=== PATIENT | male | born 1950 | race African-American/Black ===

== ENCOUNTER 2016-04-17 12:06 | Inpatient (IN) | payer OTHER ==
--- NOTE | ~2016-04-17 | CN ---
Consultation Report [id number] [place]. [address] NAME: DAMI SHANNON : 54 STATUS : ADM IN [facility]#: [id number] AGE: 65 ADM/REG DATE : 04/17/16 MR#: [id number] REPORT SERV DATE: 04/18/16 DICTATED BY: RAJAN ALFARO DATE: 04/18/16 REPORT STATUS : Draft TRANSCRIBED BY: MODL DATE: 04/18/16 CONSULTATION DATE OF CONSULTATION: 04/18/2016 REASON FOR CONSULTATION: Dysphagia. HISTORY OF PRESENT ILLNESS: Mr. 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 He also around the same time did have a cardiac arrest with requiring cardiac catheterization and stent placement and he is currently on Plavix. The patient has been getting chemo or radiation therapy and has developed inability to swallow. The patient reports at this point his swallowing is severe, he cannot keep down really significantly solids or liquids and he is losing weight. These symptoms are worsening. PAST MEDICAL HISTORY: Otherwise includes coronary artery disease, hepatitis C, hypertension, squamous cell cancer of the esophagus. Past medical history also includes history of C. diff. HOME MEDICATIONS: Include amlodipine, aspirin, Lipitor, Plavix, iron, lisinopril, metoprolol, vancomycin. ALLERGIES: HE HAS NO KNOWN DRUG ALLERGIES. SOCIAL HISTORY: He is not currently smoking or drinking. FAMILY HISTORY: Noncontributory. REVIEW OF SYSTEMS: Notable for weight loss, difficulty swallowing, and weakness. REVIEW OF SYSTEMS: Otherwise, a 14-point review of system is reviewed and was negative unless mentioned in the HPI. PHYSICAL EXAMINATION: VITAL SIGNS: Revealed a temperature of 98.4, heart rate is 71, blood pressure 138/65. GENERAL: The patient is lying in bed, in no apparent distress. HEENT: His head is atraumatic and normocephalic. His sclerae are nonicteric. Conjunctivae clear. NECK: Revealed no crepitus or thyromegaly. LUNGS: Clear. CARDIOVASCULAR: Regular rate and rhythm. ABDOMEN: Soft, nontender, and nondistended. No guarding or rebound. EXTREMITIES: Revealed no clubbing, cyanosis, or edema. Consultation Report [id number] [place]. [address] NAME: DAMI SHANNON : 54 STATUS : ADM IN PAT#: [id number] AGE: 65 ADM/REG DATE : 04/17/16 MR#: [id number] REPORT SERV DATE: 04/18/16 DICTATED BY: RAJAN ALFARO DATE: 04/18/16 REPORT STATUS : Draft TRANSCRIBED BY: MODFeng DATE: 04/18/16 LABORATORY DATA: Laboratory evaluation was notable for a white blood cell count of 1.7 with an ANC of 0.95, hemoglobin of 7.6. IMPRESSION: Dysphagia. PLAN: We will tentatively plan PEG for Thursday, assuming the patient's ANC is above 1000. We will reassess Thursday morning. At that time, we will tentatively plan for Thursday, but this may need to be delayed if his ANC drops further. Thank you for allowing to evaluate the patient. Please do not hesitate to contact me should you have any further concerns or questions. GO/MODL Rajan Alfaro MD / [id number] CC: MD Chandler Marc MD
--- NOTE | ~2016-04-17 | IDS ---
Interim Discharge Summary [facility] [address] [place]. [address] NAME: DAMI RANDLE : 54 STATUS : ADM IN [facility]#: [id number] AGE: 65 ADM/REG DATE : 04/17/16 MR#: [id number] REPORT SERV DATE: 04/21/16 DICTATED BY: CHARLES BERNSTEIN DATE: 04/21/16 REPORT STATUS : Draft TRANSCRIBED BY: MODL DATE: 04/21/16 ADMISSION DATE: 04/17/2016 DISCHARGE DATE: DATE OF DISCHARGE: Unknown. DATE OF INTERIM NOTE: 04/21/2016. INTERIM DIAGNOSES: 1. Moderate malnutrition. 2. Dysphagia. 3. Malignant neoplasm of the supraglottis, undergoing chemotherapy and radiation. Followed by Dr. Medrano. 4. Coronary artery disease, status post cardiac arrest, implantation of pacemaker defibrillator in October 2015. 5. History of clostridium difficile. 6. Hypertension. 7. Pancytopenia, chemo induced. 8. Hypokalemia. 9. Hypomagnesium. CONSULTATIONS: 1. Cardiology, Dr. Schneider, 04/17/2016. 2. GI, Dr. Alfaro, 04/18/2016. LABORATORY DATA: WBCs 1.5, hemoglobin 7.8, hematocrit 24.3, and platelet count is 84. Sodium is 144, potassium is 3.7, chloride is 110, CO2 is 26, BUN is 2, creatinine 0.70, glucose is 78, calcium is 7.9, but magnesium is 1.5. HOSPITAL STAY: Please refer to history and physical dictated by Charles Bernstein, nurse- practitioner, on 04/17/2016 for complete admission details as well as consultation note by Dr. Schneider and Dr. Alfaro. This patient is a 65-year-old gentleman who presented as a direct admission due to dysphagia and malnutrition. He does present with a history of malignant neoplasm of the supraglottis, undergoing chemotherapy and radiation. He is under the care of Dr. Medrano of [facility]. He also presents with a history of coronary artery disease, status post drug- eluting stent in October 2015 in the setting of a [id number] myocardial infarct and ventricular tachycardic arrest. 1. Moderate malnutrition due to malignant neoplasm of the supraglottis. The patient has been undergoing chemotherapy and radiation. Has had decreased oral intake. Does state within the past 7 days prior to admission, he has lost approximately 10 pounds. The patient was admitted for PEG tube placement. GI was consulted to see the patient due to patient's cardiac history. A PEG tube will be placed today, 04/21/2016. 2. Dysphagia due to malignant neoplasm of the supraglottis. The patient has been unable to tolerate clear liquids at home. Since admission, he has been able to do sips of Interim Discharge Summary [address] [address] NAME: DAMI RANDLE : 54 STATUS : ADM IN [facility]#: [id number] AGE: 65 ADM/REG DATE : 04/17/16 MR#: [id number] REPORT SERV DATE: 04/21/16 DICTATED BY: CHARLES BERNSTEIN DATE: 04/21/16 REPORT STATUS : Draft TRANSCRIBED BY: ZUHAIR DATE: 04/21/16 liquids, and we have continued MD Louie and oral care. 3. Malignant neoplasm of the supraglottis. The patient is under the care of Dr. Medrano. He is currently undergoing weekly chemotherapy and radiation. 4. Oncology is following the patient during this stay. 5. Coronary artery disease, status post cardiac arrest, embolization of pacemaker and defibrillator in October 2015. The patient when admitted, had been taking his Plavix and aspirin. Paper Novelty Maker was consulted due to complicated history. Plavix and aspirin have been held. The patient has been on a heparin drip due to PEG tube placement. 6. History of C. diff. The patient has had history of C. diff, has had formed stools since admission, and we will continue vancomycin tapering dose. 7. Hypertension. The patient has remained stable. We will continue same medications. 8. Pancytopenia, chemo induced. The patient has been monitored and stable. No transfusions have been needed at this time. 9. Hypokalemia and hypomagnesium and this has been replaced per protocol. DISCHARGE PLANNING: The patient will have a PEG tube placed today, 04/21/2016. A Nutrition consult has been obtained for tube-feeding recommendations. retirement manager is involved due to discharge needs. The patient will be followed by Dr. Ronen Shabazz. [facility]/ZUHAIR Charles Bernstein NP / [id number] CC: MD Chandler Marc MD
--- NOTE | ~2016-04-17 | EGD ---
EGD REPORT [facility] [address] [place] 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 Estimated blood loss: Minimal. Procedure: Pre-Anesthesia Assessment: - ASA Grade Assessment: III - A patient with severe systemic disease. After obtaining informed consent, the endoscope was passed under direct vision. Throughout the procedure, the patient's blood pressure, pulse, and oxygen saturations were monitored continuously. The GIF [id number] was introduced through the mouth, and advanced to the second part of duodenum. The upper GI endoscopy was accomplished without difficulty. The patient tolerated the procedure well. Findings: No gross lesions were noted in the entire esophagus. No gross lesions were noted in the entire examined duodenum. No gross lesions were noted in the entire examined stomach. The patient was placed in the supine position for PEG placement. The stomach was insufflated to appose gastric and abdominal garay. A site was located in the body of the stomach with excellent transillumination and manual external pressure for placement. The abdominal wall was marked and prepped in a sterile manner. The area was anesthetized with 5 mL of 1% lidocaine. The trocar needle was introduced through the abdominal wall and into the stomach under direct endoscopic view. A snare was introduced through the endoscope and opened in the gastric lumen. The guide wire was passed through the trocar and into the open snare. The snare was closed around the guide wire. The endoscope and snare were removed, pulling the wire out through the mouth. A skin incision was made at the site of needle insertion. The externally removable 20 Fr EndoVive Safety gastrostomy tube was lubricated. The G-tube was passed over the guide wire through the mouth, and into the stomach. The trocar needle was removed, and the gastrostomy tube was pulled out from the stomach through the skin. The guide wire was removed, and the external bumper attached to the gastrostomy tube. The feeding tube was then cut EGD REPORT [place] [id number] [facility] [place]. [address] NAME: VENKATESH SHANNON : 54 STATUS : ADM IN [facility]#: [id number] AGE: 65 ADM/REG DATE : 04/17/16 MR#: [id number] REPORT SERV DATE: 04/21/16 DICTATED BY: BRANDEN PALMA DATE: 04/21/16 REPORT STATUS : Draft TRANSCRIBED BY: [employer] DATE: 04/21/16 to an appropriate length. The final position of the gastrostomy tube was confirmed by skin marking noted to be 2.5 cm at the external bumper. The final tension and compression of the abdominal wall by the PEG tube and external bumper were checked and revealed that the bumper was loose and lightly touching the skin. The feeding tube was capped, and the tube site was cleaned and dressed. Estimated blood loss was minimal. Impression: - An externally removable PEG placement was successfully completed. Recommendation: - Return patient to hospital conteh for ongoing care. - Please follow the post-PEG recommendations including: antibiotic ointment to site, change dressing once per day, clean site with soap and water daily and dry thoroughly, remove dressing after 2 weeks, NPO x4 hrs then water today, may use PEG today for meds and water and may use PEG tomorrow for feedings. 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 All rights reserved. The codes documented in this report are preliminary and upon continuous improvement intern review may be revised to meet current compliance requirements. Branden Palma MD BRANDEN PALMA MD 04/21/2016 12:11 PM This report has been signed electronically. Number of Addenda: 0 Note Initiated On: 04/21/2016 11:36 AM Scope Withdrawal Time 0 hours 0 minutes 0 seconds [address] [place] [address]
--- NOTE | ~2016-04-17 | DS ---
Discharge Summary [facility] [address] [facility] [place]. [address] NAME: DAMI RANDLE : 54 STATUS : DIS IN PAT#: [id number] AGE: 65 ADM/REG DATE : 04/17/16 MR#: [id number] REPORT SERV DATE: 04/26/16 DICTATED BY: KARAN RODRIGUES DATE: 04/25/16 REPORT STATUS : Draft TRANSCRIBED BY: MODFeng DATE: 04/25/16 ADMISSION DATE: 04/17/2016 DISCHARGE DATE: 04/25/2016 ADDENDUM: This will be an addendum to discharge summary dictated by Dr. Shabazz. HOSPITAL COURSE: This patient was supposedly to be discharged yesterday, however, he had VA benefits and it required approval of multiple things needed in the home setting, this has been done through our Case Management Department. This patient does remain on his vancomycin taper for his C. difficile colitis. His fever has abated and he is tolerating his tube feeds without difficulty. There has not been any other change in his medical care in the last 24 hours. He will follow up with his primary care physician as well as subspecialty physician in the outpatient setting. This was discussed with the patient and the nursing staff. The patient remained stable and is being discharged in stable condition. NEEL/ZUHAIR Karan Rodrigues M.D. / [id number] CC: Courtney Dalton MD
--- NOTE | ~2016-04-17 | DS ---
Discharge Summary [facility] [address] [place]. [address] NAME: DAMI RANDLE : 54 STATUS : ADM IN [facility]#: [id number] AGE: 65 ADM/REG DATE : 04/17/16 MR#: [id number] REPORT SERV DATE: 04/25/16 DICTATED BY: GABE MARRERO II DATE: 04/24/16 REPORT STATUS : Draft TRANSCRIBED BY: MODL DATE: 04/24/16 ADMISSION DATE: 04/17/2016 DISCHARGE DATE: 04/25/2016 DISCHARGE DIAGNOSES: 1. Dysphagia secondary to neoplasm and radiation. 2. Moderate malnutrition secondary to the above. 3. Squamous cell carcinoma of the supraglottis undergoing chemotherapy and radiation followed by Dr. Medrano. 4. Coronary artery disease, status post cardiac arrest. Implantation of a pacemaker defibrillator in October 2015. 5. History of Clostridium difficile, on vanc taper. 6. Hypertension. 7. Pancytopenia secondary to chemo. 8. Hypokalemia. 9. Hypomagnesemia. 10.Postop fever with negative infectious workup. CONSULTATIONS: Dr. Schneider with Cardiology, Dr. Alfaro of GI, Dr. Medrano with Oncology. PROCEDURES: EGD with PEG tube placement. BRIEF HISTORY OF PRESENT ILLNESS: The patient is a 65-year-old male with the above history who presented to [facility] due to dysphagia and weight loss. For detailed history and physical examination, please see Arabella Bernstein's note from 04/17/2016. HOSPITAL COURSE: For details of the patient's hospitalization through 04/21/2016, please see Arabella Bernstein's interim summary on that date. Regarding the patient's dysphagia and malnutrition, Dr. Alfaro placed a PEG tube on 04/21. The patient tolerated the procedure well and is now tolerating tube feeds at goal. Case management is arranging supplies through home health and the patient will be educated on his PEG tube. Postoperatively, on the and on the morning of the , the patient spiked a fever of 101. The patient again spiked a fever of 103 on the . Infectious workup including procalcitonin, chest x-ray, urine, and blood cultures have all been unremarkable, and the patient has been afebrile since. No antibiotics were started except for the patient's oral vancomycin for history of C difficile. Symptomatically, he continues to endorse thick secretions likely secondary to radiation and Mucinex will be started. Regarding the patient's head neck cancer, Dr. Medrano is planning on starting chemotherapy on Thursday. His cell counts continued to improve. His white cell count went up to 3.7, hemoglobin stable at 7.9, platelet count up to 149. He is back on aspirin and Plavix for his coronary artery disease and stent back in October. His blood pressure continues to be fairly elevated and we will increase his Norvasc as well as continue his lisinopril and metoprolol. Overall, the patient is currently stable for discharge and he will be discharged the morning of 04/25. DISCHARGE MEDICATIONS: 1. Norvasc 10 mg p.o. daily. Discharge Summary [address] [address] NAME: DAMI RANDLE : 54 STATUS : ADM IN [facility]#: [id number] AGE: 65 ADM/REG DATE : 04/17/16 MR#: [id number] REPORT SERV DATE: 04/25/16 DICTATED BY: GABE MARRERO II DATE: 04/24/16 REPORT STATUS : Draft TRANSCRIBED BY: ZUHAIR DATE: 04/24/16 2. Aspirin 81 mg p.o. daily. 3. Lipitor. 4. Atorvastatin 80 mg p.o. at bedtime. 5. Plavix 75 mg p.o. daily. 6. Ferrous sulfate 325 mg p.o. daily. 7. Proventil 40 mg p.o. daily. 8. Lopressor 25 mg p.o. b.i.d. 9. Continue vancomycin taper as previously scheduled. 10.Mucinex 600 mg per PEG b.i.d. DISCHARGE INSTRUCTIONS: The patient will follow up with Dr. Medrano this Thursday. SHILA/ZUHAIR Gabe Marrero II, MD / [id number] CC: MD Chandler Mendoza II, MD
--- NOTE | ~2016-04-17 | CN ---
Consultation Report [facility] [address] [place]. [address] NAME: DAMI RANDLE : 54 STATUS : ADM IN PAT#: [id number] AGE: 65 ADM/REG DATE : 04/17/16 MR#: [id number] REPORT SERV DATE: 04/18/16 DICTATED BY: TERESA SCHNEIDER JR. DATE: 04/18/16 REPORT STATUS : Draft TRANSCRIBED BY: MODFeng DATE: 04/18/16 DATE OF CONSULTATION: 04/18/2016 INDICATION: Preoperative evaluation prior to PEG. 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 Medrano of [facility], currently undergoing chemotherapy, who presented recently with a ten-pound weight loss, dysphagia, anorexia, and cough. He now is admitted for a PEG placement and is on IV hydration only. On October 2015, he had non-ST elevation myocardial infarction with VT arrest, for which a single drug-eluting stent was placed to the LAD. This was a PROMUS Premier. Since that time, he denies any angina. He denies any further dysrhythmia, and otherwise had been doing well from a cardiovascular standpoint. His last dose of Plavix was approximately three days ago due to his inability to swallow. REVIEW OF SYSTEMS: A ten-point review of systems, otherwise, unremarkable. ALLERGIES: NONE KNOWN. MEDICATIONS: Currently none as he is unable to take anything by mouth. PAST MEDICAL HISTORY: Notable for history of known coronary artery disease with non-ST elevation myocardial infarction and VT arrest, diverticular bleed, hepatitis C without cirrhosis, dyslipidemia, hypertension, anemia, and supraglottic squamous-cell carcinoma. PAST SURGICAL HISTORY: Notable for a left hip arthroplasty, pacer defibrillator implantation, and prior PCI. SOCIAL HISTORY: Notable for former tobacco use. No ethanol or IV drug use. FAMILY HISTORY: Notable for absence of known heart disease or hypertension. PHYSICAL EXAMINATION: VITAL SIGNS: Blood pressure last reported 157/68, pulse is 81, respirations 14. The patient is afebrile. HEENT: Unremarkable. NECK: Supple without jugular venous distention or carotid bruits. CARDIOVASCULAR SYSTEM: Regular rhythm. No S3. No S4. PMI is laterally displaced. LUNGS: Clear. Apices diminished in the bases. ABDOMEN: Benign without hepatomegaly. EXTREMITIES: 1+ with no pedal edema. NEUROLOGIC: He is grossly intact. LABORATORY DATA: EKG is not performed. Sodium 147, potassium 3.2, chloride 113, BUN 8, Consultation Report [place] [address] [place]. [address] NAME: DAMI RANDLE : 54 STATUS : ADM IN [facility]#: [id number] AGE: 65 ADM/REG DATE : 04/17/16 MR#: [id number] REPORT SERV DATE: 04/18/16 DICTATED BY: TERESA SCHNEIDER JR. DATE: 04/18/16 REPORT STATUS : Draft TRANSCRIBED BY: MODL DATE: 04/18/16 creatinine 0.6, glucose of 82, calcium 7.7. H and H of 7.8 and 24.1, and white count of 1.9. IMPRESSION: A 65-year-old male with history of ventricular tachycardia, history of coronary artery disease, status post ventricular tachycardia arrest, status post non-ST elevation myocardial infarction post Premier drug-eluting stent in October 2015 with normal left ventricular systolic function by echo, history of automatic implantable cardioverter-defibrillator implantation. PLANS AND RECOMMENDATIONS: 1. Heparin drip. 2. Beta-isaiah. 3. Proceed with PEG on Thursday as risks are outweighed by benefits of the procedure. 4. Resume Plavix postoperative day 1. We will need perioperative beta-isaiah and will need [employer] customer operations representative to temporarily turn off defibrillator function perioperatively and resume normal function postoperatively. /ZUHAIR Teresa Schneider Jr., M.D. / [id number] CC: MD Chandler Marc MD Bertrand Marquess Anz III, M.D.
--- NOTE | ~2016-04-17 | HP ---
History And Physical [id number] [place]. [address] NAME: DAMI RANDLE : 54 STATUS : ADM IN [facility]#: [id number] AGE: 65 ADM/REG DATE : 04/17/16 MR#: [id number] REPORT SERV DATE: 04/17/16 DICTATED BY: CHARLES BERNSTEIN DATE: 04/17/16 REPORT STATUS : Draft TRANSCRIBED BY: MODFeng DATE: 04/17/16 DATE OF ADMISSION: 04/17/2016 CHIEF COMPLAINT: Dysphagia and weight loss. HISTORY OF PRESENT ILLNESS: This patient is a 65-year-old gentleman who presented with a history of malignant neoplasm of supraglottis squamous-cell carcinoma. He is under the care of Dr. Medrano of [facility], currently undergoing chemotherapy. He presented in Dr. Medrano's office today with complaints of a 10-pound weight loss over seven days. He does state that he has been unable to eat or drink. Last time, the patient has not had anything to drink on April 14, 2016. He does state that he has had a productive cough. No fever or chills, but does state that he has had no appetite and occasional nausea. No vomiting. He does present with a history of coronary artery disease, status post drug-eluting stent in October 2015 in the setting of a non-ST elevation myocardial infarct, ventricular tachycardic arrest. REVIEW OF SYSTEMS: Otherwise negative review of system except what is listed above. ALLERGIES: NO KNOWN ALLERGIES. PAST MEDICAL HISTORY: 1. Coronary artery disease, status post drug-eluting stent in October 2015 in the setting of a non-ST elevation myocardial infarct, ventricular tachycardic arrest. 2. Diverticular bleed with colonic polyps. 3. Hepatitis C without cirrhosis diagnosed in 2004. 4. Dyslipidemia. 5. Hypertension. 6. Acute blood loss anemia with underlying cause unknown. 7. 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 PAST SURGICAL HISTORY: 1. Pacer defibrillator implantation secondary to prevention of sudden cardiac arrest. 2. Left hip arthroplasty in August 2015. SOCIAL HISTORY: The patient is . Has five children. He formerly smoked. Denies alcohol use since January 2016. Denies illicit drug use. FAMILY HISTORY: 1. Mother due to trauma. 2. Father , was murdered. 3. The patient has three siblings, one . CURRENT MEDICATIONS: To be obtained. HOME MEDICATIONS: History And Physical [address] [place]. [address] NAME: DAMI RANDLE : 54 STATUS : ADM IN PAT#: [id number] AGE: 65 ADM/REG DATE : 04/17/16 MR#: [id number] REPORT SERV DATE: 04/17/16 DICTATED BY: CHARLES BERNSTEIN DATE: 04/17/16 REPORT STATUS : Draft TRANSCRIBED BY: ZUHAIR DATE: 04/17/16 1. Norvasc 5 mg one p.o. daily. 2. Aspirin 325 mg one p.o. daily. 3. Lipitor 80 mg one p.o. daily. 4. Plavix 75 mg one p.o. daily. 5. Ferrous sulfate 325 mg one p.o. daily. 6. Lisinopril 40 mg one p.o. daily. 7. Lopressor 25 mg one p.o. twice daily. 8. Vancomycin 125 mg tapering dose. PHYSICAL EXAMINATION: VITAL SIGNS: O2 saturations 98% on room air. Temperature is 98.6, pulse is 82, respirations are 16, blood pressure is 141/65. NEURO: The patient is alert and oriented. GENERAL: This patient appears fatigued and frail, in no acute distress. NECK: No JVP. Mucous membranes are dry. Oropharynx without lesions. CHEST: Left-sided pacemaker defibrillator. No tenderness. LUNGS: Diminished in the bases. No wheezes, rales, or rhonchi. CARDIOVASCULAR: Regular rate and rhythm. ABDOMEN: Soft, nontender to touch. EXTREMITIES: No edema. No cyanosis. LABORATORY DATA: WBCs 3.1, hemoglobin 9.5, hematocrit 29.7, and platelet count is 136. Glucose is 76, BUN is 11, creatinine is 0.70. Sodium is 143, potassium 3.9, chloride 105, ALT is 58, AST is 77, alkaline phos is 124, albumin is 3.0, globulin is 3.3, calcium is 8.5, total bilirubin is 0.7. ASSESSMENT AND PLAN: 1. Moderate malnutrition. The patient states that he has approximately ten-pound weight loss over the past seven days. Since November of 2015, the patient has lost approximately 25 to [address] the patient on a clear liquid diet. We will obtain a Gastrointestinal consult for percutaneous endoscopic gastrostomy tube placement. We will provide IV fluids and we will provide IV fluids. 2. Dysphagia. The patient has had nothing to eat or drink since April 14, 2016 due to mild pain. We will add MD Palma with lidocaine p.r.n. for pain. We will provide clear liquids. 3. Malignant neoplasm of the supraglottis, squamous-cell carcinoma. We will consult Oncology to follow the patient during his hospital stay. Chemotherapy is on hold at this time. 4. Coronary artery disease, status post cardiac arrest, implantation of a pacemaker defibrillator in October 2015. The patient is currently on aspirin and Plavix. We will obtain a cardiac clearance for percutaneous endoscopic gastrostomy tube placement. 5. History of Clostridium diff. The patient will continue vancomycin tapering dose. At this time, the patient states that he has had formed stools. No abdominal pain. No cramping. 6. Hypertension. The patient's blood pressure at this time is 141/65, which is stable. We will continue home medications. Continue to follow. 7. Code status. The patient is a full code. History And Physical [address] [address] NAME: DAMI RANDLE : 54 STATUS : ADM IN [facility]#: [id number] AGE: 65 ADM/REG DATE : 04/17/16 MR#: [id number] REPORT SERV DATE: 04/17/16 DICTATED BY: CHARLES BERNSTEIN DATE: 04/17/16 REPORT STATUS : Draft TRANSCRIBED BY: ZUHAIR DATE: 04/17/16 8. The patient will be followed by Dr. Anival Martinez during his hospital stay. [facility]/ZUHAIR Charles Bernstein NP / [id number] CC: MD Chanlder Marc MD
[~2016-04-17 12:06] MED LIST: *UNABLE3; APRES25 PO; ASA5GR PO; ASAB PO; ASABAYER PO; C5 PO; CHEMOTHERAPY IV; CORDARONE PO; EFFIENT10 PO; FERROUS SULF325 M1 PO; FLORASTOR250 MG PO; HYDROCHLOROT12.5 MG PO; HYDROCHLOROT25 MG PO; IMOD PO; KLOR-CON M2020 MEQ PO; LIPITOR40 PO; LIPITOR80 MG PO; LISINOPRIL40 MG PO; LOP25 PO; LOTREL1 CA1 PO; MAGNEBIND PO; MAGOX4 PO; MAX25 PO; MELA3 PO; MONOPRIL40 MG PO; NAP375 PO; NORCO1 TA2; NORCO1 TA2 PO; NORV10 PO; NORV5 PO; PLAVIX PO; PRAVAC PO; PRILO PO; TOPXL25 PO; UNKNOWN INHALER INH; VANCOCIN HCL125 MG PO/LIQ; VANCOMYCIN 125MG/5ML PO; VIAGRA50 MG PO; VITAMIN D400 UNI1 PO; Z300 PO
[2016-04-18 05:34] LABS: CALCIUM, SERUM 7.7 MG/DL (8.5-10.4); CHLORIDE, SERUM 113 MMOL/L (96-112); CO2 (CARBON DIOXIDE) 25 MMOL/L (24-34); CREATININE 0.63 MG/DL (0.70-1.30); GFR AFRICAN AMERICAN 122 ML/MIN (>=60); GFR NON AFRICAN AMERICAN 105 ML/MIN (>=60); POTASSIUM, SERUM 3.2 MMOL/L (3.5-5.3); SODIUM, SERUM 147 MMOL/L (135-148)
[2016-04-18 05:37] LABS: BUN (BLOOD UREA NITROGEN) 8 MG/DL (6-23); GLUCOSE, SERUM 82 MG/DL (60-99)
[2016-04-18 05:43] LABS: MEAN CORPUS HGB CONC 32.4 g/dL (32.0-36.0); MEAN CORPUSCULAR HEMOGLOB 28.7 pg (26.0-34.0); MEAN PLATELET VOLUME 11.7 fL (9.2-13.0); PLATELET COUNT 105 10/3/uL (150-400); RBC DISTRIBUTION WIDTH 15.5 % (12.0-16.0); RED CELL COUNT 2.72 10/6/uL (4.7-6.1)
[2016-04-18 05:47] LABS: HEMATOCRIT 24.1 % (40.0-51.0); HEMOGLOBIN 7.8 g/dL (13.6-17.8); MANUAL DIFF YES %; MEAN CORPUSCULAR VOLUME 88.6 fL (80-100); WHITE BLOOD CELLS 1.9 10/3/uL (4.5-10.5)
[2016-04-18 07:27] LABS: BAND NEUTROPHILS 8 %; LYMPHOCYTES 19 %; LYMPHOCYTES ABSOLUTE (CALC) 0.36 10/3/uL (0.67-4.30); MONOCYTES 5 %; NEUTROPHILS ABSOLUTE (CALC) 1.44 10/3/uL (2.02-8.40); PLATELET ESTIMATE SLT DEC (ADEQUATE); SEGMENTED NEUTROPHIL (0) 68 %; TOTAL NUCLEATED CELLS 100
[2016-04-18 07:28] LABS: RBC MORPHOLOGY NORM (NORMAL)
[2016-04-18 10:51] LABS: HEMATOCRIT 23.1 % (40.0-51.0); HEMOGLOBIN 7.6 g/dL (13.6-17.8); MEAN CORPUS HGB CONC 32.9 g/dL (32.0-36.0); MEAN CORPUSCULAR HEMOGLOB 29.2 pg (26.0-34.0); MEAN CORPUSCULAR VOLUME 88.8 fL (80-100); MEAN PLATELET VOLUME 11.3 fL (9.2-13.0); PLATELET COUNT 98 10/3/uL (150-400); RBC DISTRIBUTION WIDTH 15.3 % (12.0-16.0)
[2016-04-18 10:53] LABS: MANUAL DIFF YES %; WHITE BLOOD CELLS 1.7 10/3/uL (4.5-10.5)
[2016-04-18 11:02] LABS: INTERNATIONAL NORMAL RATI 1.2 UNITS (-); PARTIAL THROMBO TIME 31.4 SEC (22.5-37.2); PROTIME (NOT ORD) 14.8 SEC (12.0-14.5)
[2016-04-18 11:23] LABS: BAND NEUTROPHILS 10 %; BASOPHILS 4 %; BASOPHILS ABSOLUTE (CALC) 0.07 10/3/uL (0.0-0.16); EOSINOPHILS 2 %; EOSINOPHILS ABSOLUTE (CALC) 0.03 10/3/uL (0.0-0.53); LYMPHOCYTES 26 %; LYMPHOCYTES ABSOLUTE (CALC) 0.44 10/3/uL (0.67-4.30); MONOCYTES 12 %; NEUTROPHILS ABSOLUTE (CALC) 0.95 10/3/uL (2.02-8.40); PLATELET ESTIMATE DEC (ADEQUATE); SEGMENTED NEUTROPHIL (0) 46 %; TOTAL NUCLEATED CELLS 100
[2016-04-18 11:24] LABS: RBC MORPHOLOGY NORM (NORMAL)
[2016-04-18 21:17] LABS: HEMATOCRIT 23.6 % (40.0-51.0); HEMOGLOBIN 7.6 g/dL (13.6-17.8); MEAN CORPUS HGB CONC 32.2 g/dL (32.0-36.0); MEAN CORPUSCULAR HEMOGLOB 28.4 pg (26.0-34.0); MEAN CORPUSCULAR VOLUME 88.1 fL (80-100); PLATELET COUNT 107 10/3/uL (150-400); RBC DISTRIBUTION WIDTH 15.6 % (12.0-16.0); RED CELL COUNT 2.68 10/6/uL (4.7-6.1)
[2016-04-18 21:22] LABS: WHITE BLOOD CELLS 1.8 10/3/uL (4.5-10.5)
[2016-04-18 21:24] LABS: MANUAL DIFF YES %
[2016-04-18 22:05] LABS: BAND NEUTROPHILS 6 %; BASOPHILS 1 %; BASOPHILS ABSOLUTE (CALC) 0.02 10/3/uL (0.0-0.16); EOSINOPHILS 2 %; EOSINOPHILS ABSOLUTE (CALC) 0.04 10/3/uL (0.0-0.53); LYMPHOCYTES 22 %; MONOCYTES 6 %; MONOCYTES ABSOLUTE (CALC) 0.11 10/3/uL (0.21-1.20); NEUTROPHILS ABSOLUTE (CALC) 1.24 10/3/uL (2.02-8.40); SEGMENTED NEUTROPHIL (0) 63 %; TOTAL NUCLEATED CELLS 100
[2016-04-18 22:06] LABS: PLATELET ESTIMATE SLT DEC (ADEQUATE)
[2016-04-18 22:07] LABS: RBC MORPHOLOGY NORM (NORMAL)
[2016-04-19 05:43] LABS: HEMATOCRIT 24.3 % (40.0-51.0); HEMOGLOBIN 7.8 g/dL (13.6-17.8); MEAN CORPUS HGB CONC 32.1 g/dL (32.0-36.0); MEAN CORPUSCULAR HEMOGLOB 28.7 pg (26.0-34.0); MEAN CORPUSCULAR VOLUME 89.3 fL (80-100); MEAN PLATELET VOLUME 11.4 fL (9.2-13.0); PLATELET COUNT 106 10/3/uL (150-400); RBC DISTRIBUTION WIDTH 15.7 % (12.0-16.0); RED CELL COUNT 2.72 10/6/uL (4.7-6.1)
[2016-04-19 05:45] LABS: MANUAL DIFF YES %; WHITE BLOOD CELLS 1.9 10/3/uL (4.5-10.5)
[2016-04-19 05:50] LABS: CALCIUM, SERUM 7.8 MG/DL (8.5-10.4); CHLORIDE, SERUM 112 MMOL/L (96-112); CO2 (CARBON DIOXIDE) 24 MMOL/L (24-34); CREATININE 0.56 MG/DL (0.70-1.30); GFR AFRICAN AMERICAN 128 ML/MIN (>=60); GFR NON AFRICAN AMERICAN 110 ML/MIN (>=60); GLUCOSE, SERUM 77 MG/DL (60-99); POTASSIUM, SERUM 3.7 MMOL/L (3.5-5.3); SODIUM, SERUM 145 MMOL/L (135-148)
[2016-04-19 05:51] LABS: BUN (BLOOD UREA NITROGEN) 4 MG/DL (6-23)
[2016-04-19 07:21] LABS: BAND NEUTROPHILS 9 %; EOSINOPHILS 3 %; EOSINOPHILS ABSOLUTE (CALC) 0.06 10/3/uL (0.0-0.53); LYMPHOCYTES 28 %; LYMPHOCYTES ABSOLUTE (CALC) 0.53 10/3/uL (0.67-4.30); MONOCYTES 8 %; MONOCYTES ABSOLUTE (CALC) 0.15 10/3/uL (0.21-1.20); NEUTROPHILS ABSOLUTE (CALC) 1.16 10/3/uL (2.02-8.40); PLATELET ESTIMATE SLT DEC (ADEQUATE); SEGMENTED NEUTROPHIL (0) 52 %; TOTAL NUCLEATED CELLS 100
[2016-04-19 07:22] LABS: GIANT PLATELET OCC; OVALOCYTES 1+ (3-10/OIF) (0-2/OIF); TOXIC GRANULATION 1+
[2016-04-20 06:42] LABS: BASOPHILS 0 %; EOSINOPHILS 0.9 %; EOSINOPHILS ABSOLUTE 0.02 10/3/uL (0.0-0.53); HEMATOCRIT 24.8 % (40.0-51.0); HEMOGLOBIN 8.1 g/dL (13.6-17.8); IMMATURE GRANULOCYTES 0.4 %; IMMATURE GRANULOCYTES ABSOLUTE 0.01 10/3/uL (0.0-0.11); LYMPHOCYTES 34.2 %; LYMPHOCYTES ABSOLUTE 0.79 10/3/uL (0.67-4.30); MEAN CORPUS HGB CONC 32.7 g/dL (32.0-36.0); MEAN CORPUSCULAR HEMOGLOB 29.1 pg (26.0-34.0); MEAN CORPUSCULAR VOLUME 89.2 fL (80-100); MONOCYTES 16.9 %; MONOCYTES ABSOLUTE 0.39 10/3/uL (0.21-1.20); NEUTROPHILS 47.6 %; PLATELET COUNT 94 10/3/uL (150-400); RBC DISTRIBUTION WIDTH 15.9 % (12.0-16.0); RED CELL COUNT 2.78 10/6/uL (4.7-6.1); WHITE BLOOD CELLS 2.3 10/3/uL (4.5-10.5)
[2016-04-20 06:43] LABS: MANUAL DIFF NO %
[2016-04-20 06:51] LABS: BUN (BLOOD UREA NITROGEN) 3 MG/DL (6-23); CALCIUM, SERUM 7.8 MG/DL (8.5-10.4); CHLORIDE, SERUM 110 MMOL/L (96-112); CO2 (CARBON DIOXIDE) 24 MMOL/L (24-34); CREATININE 0.59 MG/DL (0.70-1.30); GFR AFRICAN AMERICAN 125 ML/MIN (>=60); GFR NON AFRICAN AMERICAN 108 ML/MIN (>=60); GLUCOSE, SERUM 77 MG/DL (60-99); POTASSIUM, SERUM 3.4 MMOL/L (3.5-5.3); SODIUM, SERUM 144 MMOL/L (135-148)
[2016-04-21 03:38] LABS: HEMATOCRIT 24.3 % (40.0-51.0); HEMOGLOBIN 7.8 g/dL (13.6-17.8); MEAN CORPUS HGB CONC 32.1 g/dL (32.0-36.0); MEAN CORPUSCULAR VOLUME 87.1 fL (80-100); MEAN PLATELET VOLUME 10.5 fL (9.2-13.0); PLATELET COUNT 84 10/3/uL (150-400); RBC DISTRIBUTION WIDTH 15.9 % (12.0-16.0); RED CELL COUNT 2.79 10/6/uL (4.7-6.1); WHITE BLOOD CELLS 1.5 10/3/uL (4.5-10.5)
[2016-04-21 03:39] LABS: MANUAL DIFF YES %
[2016-04-21 03:53] LABS: BUN (BLOOD UREA NITROGEN) 2 MG/DL (6-23); CALCIUM, SERUM 7.9 MG/DL (8.5-10.4); CHLORIDE, SERUM 110 MMOL/L (96-112); CO2 (CARBON DIOXIDE) 26 MMOL/L (24-34); GFR AFRICAN AMERICAN 116 ML/MIN (>=60); GFR NON AFRICAN AMERICAN 100 ML/MIN (>=60); GLUCOSE, SERUM 79 MG/DL (60-99); POTASSIUM, SERUM 3.7 MMOL/L (3.5-5.3); SODIUM, SERUM 144 MMOL/L (135-148)
[2016-04-21 04:20] LABS: BAND NEUTROPHILS 2 %; BASOPHILS 2 %; BASOPHILS ABSOLUTE (CALC) 0.03 10/3/uL (0.0-0.16); EOSINOPHILS 2 %; EOSINOPHILS ABSOLUTE (CALC) 0.03 10/3/uL (0.0-0.53); LYMPHOCYTES 26 %; LYMPHOCYTES ABSOLUTE (CALC) 0.39 10/3/uL (0.67-4.30); MONOCYTES 22 %; MONOCYTES ABSOLUTE (CALC) 0.33 10/3/uL (0.21-1.20); NEUTROPHILS ABSOLUTE (CALC) 0.72 10/3/uL (2.02-8.40); SEGMENTED NEUTROPHIL (0) 46 %; TOTAL NUCLEATED CELLS 100
[2016-04-21 04:21] LABS: POLYCHROMASIA 1+ (2-5/OIF) (0-1/OIF)
[2016-04-21 04:22] LABS: PLATELET ESTIMATE DEC (ADEQUATE)
[2016-04-21 04:23] LABS: SCHISTOCYTES OCC (0-2/OIF)
[2016-04-21 04:24] LABS: ELLIPTOCYTES 1+ (3-10/OIF) (0-2/OIF)
[2016-04-22 03:48] LABS: HEMATOCRIT 26.2 % (40.0-51.0); HEMOGLOBIN 8.6 g/dL (13.6-17.8); MEAN CORPUS HGB CONC 32.8 g/dL (32.0-36.0); MEAN CORPUSCULAR HEMOGLOB 28.7 pg (26.0-34.0); MEAN CORPUSCULAR VOLUME 87.3 fL (80-100); MEAN PLATELET VOLUME 10.5 fL (9.2-13.0); PLATELET COUNT 94 10/3/uL (150-400); RBC DISTRIBUTION WIDTH 15.9 % (12.0-16.0)
[2016-04-22 03:51] LABS: MANUAL DIFF YES %; WHITE BLOOD CELLS 1.3 10/3/uL (4.5-10.5)
[2016-04-22 04:08] LABS: BUN (BLOOD UREA NITROGEN) 3 MG/DL (6-23); CALCIUM, SERUM 8.1 MG/DL (8.5-10.4); CHLORIDE, SERUM 108 MMOL/L (96-112); CO2 (CARBON DIOXIDE) 25 MMOL/L (24-34); CREATININE 0.62 MG/DL (0.70-1.30); GFR AFRICAN AMERICAN 122 ML/MIN (>=60); GFR NON AFRICAN AMERICAN 106 ML/MIN (>=60); GLUCOSE, SERUM 87 MG/DL (60-99); POTASSIUM, SERUM 3.3 MMOL/L (3.5-5.3); SODIUM, SERUM 144 MMOL/L (135-148)
[2016-04-22 04:33] LABS: BAND NEUTROPHILS 6 %; EOSINOPHILS 2 %; EOSINOPHILS ABSOLUTE (CALC) 0.03 10/3/uL (0.0-0.53); LYMPHOCYTES 28 %; LYMPHOCYTES ABSOLUTE (CALC) 0.36 10/3/uL (0.67-4.30); MONOCYTES 28 %; MONOCYTES ABSOLUTE (CALC) 0.36 10/3/uL (0.21-1.20); NEUTROPHILS ABSOLUTE (CALC) 0.55 10/3/uL (2.02-8.40); PLATELET ESTIMATE DEC (ADEQUATE); SEGMENTED NEUTROPHIL (0) 36 %; TOTAL NUCLEATED CELLS 100
[2016-04-22 04:34] LABS: RBC MORPHOLOGY NORM (NORMAL)
[2016-04-23 02:26] LABS: HEMATOCRIT 26.2 % (40.0-51.0); HEMOGLOBIN 8.7 g/dL (13.6-17.8); MEAN CORPUS HGB CONC 33.2 g/dL (32.0-36.0); MEAN CORPUSCULAR HEMOGLOB 28.7 pg (26.0-34.0); MEAN CORPUSCULAR VOLUME 86.5 fL (80-100); MEAN PLATELET VOLUME 10.7 fL (9.2-13.0); PLATELET COUNT 109 10/3/uL (150-400); RBC DISTRIBUTION WIDTH 15.7 % (12.0-16.0); RED CELL COUNT 3.03 10/6/uL (4.7-6.1)
[2016-04-23 02:31] LABS: MANUAL DIFF YES %; WHITE BLOOD CELLS 2.5 10/3/uL (4.5-10.5)
[2016-04-23 02:48] LABS: BAND NEUTROPHILS 5 %; EOSINOPHILS 2 %; EOSINOPHILS ABSOLUTE (CALC) 0.05 10/3/uL (0.0-0.53); LYMPHOCYTES 9 %; LYMPHOCYTES ABSOLUTE (CALC) 0.23 10/3/uL (0.67-4.30); MONOCYTES 22 %; MONOCYTES ABSOLUTE (CALC) 0.55 10/3/uL (0.21-1.20); NEUTROPHILS ABSOLUTE (CALC) 1.68 10/3/uL (2.02-8.40); PLATELET ESTIMATE SLT DEC (ADEQUATE); POLYCHROMASIA 1+ (2-5/OIF) (0-1/OIF); SEGMENTED NEUTROPHIL (0) 62 %; TARGET CELLS FEW (3-10/OIF) (0-1/OIF); TOTAL NUCLEATED CELLS 100
[2016-04-23 02:57] LABS: BUN (BLOOD UREA NITROGEN) 4 MG/DL (6-23); CALCIUM, SERUM 8.1 MG/DL (8.5-10.4); CHLORIDE, SERUM 107 MMOL/L (96-112); CO2 (CARBON DIOXIDE) 25 MMOL/L (24-34); CREATININE 0.73 MG/DL (0.70-1.30); GFR AFRICAN AMERICAN 114 ML/MIN (>=60); GFR NON AFRICAN AMERICAN 99 ML/MIN (>=60); GLUCOSE, SERUM 123 MG/DL (60-99); PHOSPHORUS, SERUM 1.1 MG/DL (2.5-4.5); POTASSIUM, SERUM 3.5 MMOL/L (3.5-5.3); SODIUM, SERUM 143 MMOL/L (135-148)
[2016-04-23 06:10] LABS: ASCORBIC ACID (UR NOT ORDER) NEG (NEG); BILIRUBIN, URINE NEGATIVE (NEG); KETONE, URINE NEGATIVE (NEG); LEUKOCYTE ESTERASE(NOT OR NEG (NEG); WBC (NOT ORDERED) (RFLEX) 1 (0-5)
[2016-04-23 17:02] LABS: PROCALCITONIN 0.24 ng/mL (<0.5)
[2016-04-24 04:22] LABS: BASOPHILS 0.3 %; BASOPHILS ABSOLUTE 0.01 10/3/uL (0.0-0.16); EOSINOPHILS 2.2 %; EOSINOPHILS ABSOLUTE 0.08 10/3/uL (0.0-0.53); HEMATOCRIT 24.3 % (40.0-51.0); HEMOGLOBIN 7.9 g/dL (13.6-17.8); LYMPHOCYTES 21.1 %; LYMPHOCYTES ABSOLUTE 0.78 10/3/uL (0.67-4.30); MEAN CORPUS HGB CONC 32.5 g/dL (32.0-36.0); MEAN CORPUSCULAR HEMOGLOB 27.7 pg (26.0-34.0); MEAN CORPUSCULAR VOLUME 85.3 fL (80-100); MEAN PLATELET VOLUME 10.6 fL (9.2-13.0); MONOCYTES 19.5 %; MONOCYTES ABSOLUTE 0.72 10/3/uL (0.21-1.20); NEUTROPHILS 56.9 %; RBC DISTRIBUTION WIDTH 15.8 % (12.0-16.0); RED CELL COUNT 2.85 10/6/uL (4.7-6.1)
[2016-04-24 04:27] LABS: MANUAL DIFF NO %; PLATELET COUNT 149 10/3/uL (150-400); WHITE BLOOD CELLS 3.7 10/3/uL (4.5-10.5)
[2016-04-24 04:29] LABS: BUN (BLOOD UREA NITROGEN) 6 MG/DL (6-23); CALCIUM, SERUM 7.7 MG/DL (8.5-10.4); CHLORIDE, SERUM 106 MMOL/L (96-112); CO2 (CARBON DIOXIDE) 29 MMOL/L (24-34); CREATININE 0.59 MG/DL (0.70-1.30); GFR AFRICAN AMERICAN 125 ML/MIN (>=60); GFR NON AFRICAN AMERICAN 108 ML/MIN (>=60); POTASSIUM, SERUM 3.4 MMOL/L (3.5-5.3); SODIUM, SERUM 144 MMOL/L (135-148)
[2016-04-24 04:30] LABS: GLUCOSE, SERUM 98 MG/DL (60-99)
[2016-04-25] MEDS ORDERED: ASAB PO (12:50)
[2016-04-25] MEDS ORDERED: MUCINEX600 MG PO (12:54)
== END 2016-04-25 14:40 | disposition home health service (06) | DRG 157 ==
LOC: 4EA 12:06
PROVIDERS: Internal Medicine; Internal Medicine Cardiovascular Disease; Internal Medicine Gastroenterology; Nurse Practitioner Adult Health; Nurse Practitioner Family
PROC: 0DH63UZ Insertion of Feeding Device into Stomach, Percutaneous Approach (ICD-10-PCS; principal; 2016-04-21 11:50)
DX: K12.33 Oral mucositis (ulcerative) due to radiation (principal); D61.810 Antineoplastic chemotherapy induced pancytopenia; A04.7 Enterocolitis due to Clostridium difficile; E44.0 Moderate protein-calorie malnutrition; C32.1 Malignant neoplasm of supraglottis; I10 Essential (primary) hypertension; I25.10 Atherosclerotic heart disease of native coronary artery without angina pectoris; E83.42 Hypomagnesemia; E87.6 Hypokalemia; Z95.0 Presence of cardiac pacemaker
CPT/HCPCS: 71020; 77386; 80048; 81001; 82962; 83735; 84100; 84132; 84145; 85025; 85610; 85730; 87040; 87070; 87205; 93005; A9270-GY; J0360; J0690; J1170